=== PATIENT | female | born 1970 | race African-American/Black ===

== ENCOUNTER 2017-11-21 17:21 | Inpatient (IN) | payer BC ==
[~2017-11-21] VITALS: Ht 165.1 cm; Wt 78.2 kg
[~2017-11-21 17:21] MED LIST: AMITIZA24 MC1 PO; COL100 PO; COM5 PO; METP PO; THERAGRAN-M1 TA4 PO
[2017-11-21 17:31] VITALS: Ht 165.1 cm; Wt 78.2 kg
[2017-11-21 18:28] LABS: BASOPHIL % 0.2 % (0-2); PLATELET COUNT 350 x10^3mcL (130-400)
[2017-11-21 18:32] LABS: CHLORIDE SERUM 100 mmol/L (98-107); CREATININE SERUM 0.8 mg/dL (0.6-1.0); GFR1 > 60 mL/min; GLUCOSE SERUM 99 mg/dL (74-106); POTASSIUM SERUM 3.4 mmol/L (3.5-5.1); SODIUM SERUM 134 mmol/L (136-145)
[2017-11-21 18:33] LABS: RED CELL DISTRIBUTION WIDTH 15.6 % (11.5-14.5)
[2017-11-21 18:36] LABS: ALBUMIN 3.7 g/dL (3.4-5.0); ALKALINE PHOSPHATASE 50 U/L (46-116); ALT/SGPT 18 U/L (14-59); AST/SGOT 14 U/L (15-37); BILIRUBIN TOTAL 0.4 mg/dL (0.20-1.00); LIPASE 116 IU/L (73-393); TOTAL PROTEIN, SERUM 7.9 g/dL (6.4-8.2)
[2017-11-21 20:56] LABS: microscopic required? NO
[2017-11-21 21:10] LABS: UA SPECIFIC GRAVITY <=1.005 (1.005-1.035); urine erythrocyte NEGATIVE (NEGATIVE)
[2017-11-21 21:14] VITALS: BP 108/63
[2017-11-21 21:15] LABS: PHOSPHOROUS 3.5 mg/dL (2.5-4.9); T3 TOTAL 0.94 ng/mL
[2017-11-21 21:19] LABS: AMPHETAMINE QUAL UR POSITIVE (See below)
[2017-11-21 21:32] LABS: CHOLESTEROL/HDL RATIO 4.8
[2017-11-21 21:37] LABS: FREE T4 1.01 ng/dL (0.76-1.46); FREE THYROXINE INDEX 2.8 ug/dL (1.4-4.5); T4(THYROXINE) 8.4 ug/dL (4.7-13.3)
[2017-11-22 05:36] VITALS: BP 98/58
[2017-11-22 09:35] VITALS: BP 112/67
[2017-11-22 10:10] LABS: BASOPHIL % 0.8 % (0-2); PLATELET COUNT 330 x10^3mcL (130-400)
[2017-11-22 10:18] LABS: CALCIUM 8.4 mg/dL (8.5-10.1); CARBON DIOXIDE 23.7 mmol/L (21-32); CHLORIDE SERUM 110 mmol/L (98-107); CREATININE SERUM 0.8 mg/dL (0.6-1.0); GFR1 > 60 mL/min; GLUCOSE SERUM 86 mg/dL (74-106); SODIUM SERUM 143 mmol/L (136-145)
[2017-11-22 10:55] LABS: RED CELL DISTRIBUTION WIDTH 15.6 % (11.5-14.5)
[2017-11-22] MEDS ORDERED: LEVAQUIN750 MG PO (11:53)
[2017-11-22] MEDS ORDERED: FLA500 PO (11:54)
[2017-11-22 12:14] VITALS: BP 112/67
[2017-11-22 12:15] VITALS: BP 112/67
== END 2017-11-22 12:40 | disposition home or self-care (01) | DRG 392 ==
LOC: ED 17:21 → MU 19:59
PROVIDERS: Emergency Medicine; Family Medicine
DX: K52.9 Noninfective gastroenteritis and colitis, unspecified (principal); E87.6 Hypokalemia; E78.5 Hyperlipidemia, unspecified; F17.210 Nicotine dependence, cigarettes, uncomplicated; Z68.27 Body mass index [BMI] 27.0-27.9, adult; Z90.49 Acquired absence of other specified parts of digestive tract; Z90.710 Acquired absence of both cervix and uterus; Z72.89 Other problems related to lifestyle; Z80.1 Family history of malignant neoplasm of trachea, bronchus and lung
CPT/HCPCS: 83880; 84439; J1956; J2270; J2405; J2543; J3010; J3490; J7030; Q0092; Q0162

== ENCOUNTER 2018-11-03 14:05 | Emergency (ER) | payer SELFPAY ==
[~2018-11-03] VITALS: Ht 165.1 cm; Wt 70.3 kg
[~2018-11-03 14:05] MED LIST changes: +FLA500 PO; +LEVAQUIN750 MG PO
[2018-11-03 14:07] VITALS: Ht 165.1 cm; Wt 70.3 kg
[2018-11-03 15:36] LABS: BASOPHIL % 0.4 % (0-2); PLATELET COUNT 386 x10^3mcL (130-400); RED CELL DISTRIBUTION WIDTH 15.3 % (11.5-14.5)
[2018-11-03 15:47] LABS: CALCIUM 10.5 mg/dL (8.5-10.1); CARBON DIOXIDE 23.7 mmol/L (21-32); CHLORIDE SERUM 105 mmol/L (98-107); CREATININE SERUM 0.8 mg/dL (0.6-1.0); GFR1 > 60 mL/min; GLUCOSE SERUM 117 mg/dL (74-106); POTASSIUM SERUM 3.9 mmol/L (3.5-5.1); SODIUM SERUM 143 mmol/L (136-145)
[2018-11-03 15:52] LABS: ALBUMIN 3.7 g/dL (3.4-5.0); ALKALINE PHOSPHATASE 36 U/L (46-116); ALT/SGPT 29 U/L (14-59); AST/SGOT 13 U/L (15-37); BILIRUBIN DIRECT 0.16 mg/dL (0.0-0.2); BILIRUBIN TOTAL 0.6 mg/dL (0.20-1.00); LIPASE 197 IU/L (73-393)
[2018-11-03 15:54] LABS: TOTAL PROTEIN, SERUM 8.4 g/dL (6.4-8.2)
[2018-11-03 19:20] LABS: UA SPECIFIC GRAVITY 1.025 (1.005-1.035); microscopic required? YES; urine erythrocyte TRACE (NEGATIVE)
[2018-11-03 20:07] VITALS: BP 127/58
== END 2018-11-03 20:07 | disposition home or self-care (01) ==
LOC: ED 14:05
PROVIDERS: Student in an Organized Health Care Education/Training Program
DX: N12 Tubulo-interstitial nephritis, not specified as acute or chronic (principal); D72.829 Elevated white blood cell count, unspecified; R11.2 Nausea with vomiting, unspecified; G43.909 Migraine, unspecified, not intractable, without status migrainosus; Z88.1 Allergy status to other antibiotic agents; Z90.712 Acquired absence of cervix with remaining uterus
CPT/HCPCS: J0696; J1885; J2270; J2405; J3490; J7030; J7060; Q0092; Q9967

== ENCOUNTER 2018-11-14 14:59 | Inpatient (IN) | payer SELFPAY ==
[~2018-11-14] VITALS: Ht 165.1 cm; Wt 69.9 kg
--- NOTE | 2018-11-14 15:31 | NUR ---
PT BIBA C/O NAUSEA AND APPROX 6 EPISODES OF VOMITING SINCE 11AM. PT STS SHE WAS RECENTLY DX WITH "A KIDNEY INFECTION", STS SHE WAS "TOLD TO COME BACK IF I FELT WORSE AND STARTED HAVING FEVER, AND VOMITING", PT STS SHE HAS BEEN TAKING "CIPRO" FOR INFECTION AND "SOMETHING FOR THE NAUSEA BUT IT ISN'T HELPING". MODERATE TENDERNESS NOTED UPON PALP TO REJI LOWER QUADRANTS. PT NOTED TO BE TACHYPNIC, PLACED ON FULL CM, VSS, CALL LIGHT WITHIN REACH, REJI RAILS RAISED FOR SAFETY. [employer] OF 15, PT STS UPON D/C "MY DAUGHTER WILL PICK ME UP". UPON ASKING PT TO PROVIDE CLEAN CATCH URINE SAMPLE, PT STS, "IF THE DR IS GOING TO PUT IN AN IV, CAN YOU ASK HIM TO PUT IT IN WITH THE ULTRASOUND, BECAUSE I'M I HARD STICK, AND LAST TIME I WAS HERE THEY HAD A HARD TIME WITH GETTING AN IV". PT INFORMED A DR WILL BE MADE AWARE.
--- NOTE | 2018-11-14 16:28 | NUR ---
PT INSTRUCTED I WILL BE INITIATING AN IV AND DRAWING LABS FROM IV, PRIOR TO ATTEMPTED FOR AN IV PT STS "I JUST WANT TO KNOW IF I'M GOING TO GET ANYTHING FOR THE PAIN", PT INFORMED "NOT AT THIS MOMENT BECAUSE I'M GOING TO GET AN IV AND YOUR LABS DRAWN, AND THEN I WILL MEDICATE YOU", PT BEGAN TO CRY, BEGAN TO YELL "HE SAID HE WAS GOING TO ORDER SOMETHING FOR THE PAIN", PT INFORMED DR ACOSTA HAS ORDERED MEDICATION FOR HER, I STATED "BARE WITH ME, LET ME DRAW YOUR LABS AND GET AN IV AND SOON I'M DONE, I'LL BE IN HERE WITH THE MEDICATION", PT BEGAN TO YELL, "I NEED YOU TO BARE WITH ME!" DR ACOSTA MADE AWARE, SABINA CHEW, RN AT BEDSIDE TO ATTEMPT FOR IV ACCESS.
--- NOTE | 2018-11-14 16:30 | NUR ---
iv access established pt medicated per md orders see emar. ivf infusing with no problem
--- NOTE | 2018-11-14 16:31 | NUR ---
lab blood draw completed
--- NOTE | 2018-11-14 16:40 | NUR ---
pt c/o pain to lac iv site. area noted to be infiltrated iv dc'd ivf stopped.
--- NOTE | 2018-11-14 16:44 | NUR ---
new iv access established to l hand. 22g saline lock patent flushing with no problem. ivf infusion resumed. primary rn kinjal aware, resuming care of pt
[2018-11-14 16:57] LABS: BASOPHIL % 0.4 % (0-2); PLATELET COUNT 336 x10^3mcL (130-400); RED CELL DISTRIBUTION WIDTH 15.4 % (11.5-14.5)
[2018-11-14 17:06] LABS: CALCIUM 9.5 mg/dL (8.5-10.1); CARBON DIOXIDE 29.6 mmol/L (21-32); CHLORIDE SERUM 97 mmol/L (98-107); CREATININE SERUM 0.9 mg/dL (0.6-1.0); GFR1 > 60 mL/min; GLUCOSE SERUM 97 mg/dL (74-106); POTASSIUM SERUM 3.4 mmol/L (3.5-5.1); SODIUM SERUM 138 mmol/L (136-145)
[2018-11-14 17:11] LABS: ALBUMIN 4.1 g/dL (3.4-5.0); ALKALINE PHOSPHATASE 38 U/L (46-116); ALT/SGPT 37 U/L (14-59); AST/SGOT 22 U/L (15-37); BILIRUBIN TOTAL 0.7 mg/dL (0.20-1.00); TOTAL PROTEIN, SERUM 8.5 g/dL (6.4-8.2)
--- NOTE | 2018-11-14 17:23 | NUR ---
PT NOTED TO BE VOMITING INTO EMESIS BAG, APPROX 200CC OF YELLOW BILE-LIKE LIQUID NOTED.
--- NOTE | 2018-11-14 17:43 | NUR ---
PT MEDICATED PER EMAR AND MD ORDER, PT DENIES PAIN AT THIS TIME, RESPS E/U, VSS, PT IN NAD, CALL LIGHT WITHIN REACH, WILL CONTINUE TO MONITOR
--- NOTE | 2018-11-14 18:43 | NUR ---
PT NOTED TO BE SLEEING ON ED GURNEY, EQUAL CHEST RISE AND FALL NOTED, ON FULL CM. CALL LIGHT WITHIN REACH.
--- NOTE | 2018-11-14 19:15 | NUR ---
REPORT GIVEN TO GINA ROTH TO ASSUME CARE OF PT.
--- NOTE | 2018-11-14 19:34 | NUR ---
RECEIVED REPORT FROM BERNARD FUENTES AND ASSUMED CARE OF PATIENT. PT. LAYING ON GURNEY IN POSITION OF COMFORT. BREATHING E/U. REPORTS NAUSEA AT THIS TIME. DR. ACOSTA MADE AWARE.
--- NOTE | 2018-11-14 20:30 | NUR ---
PT. NOTED TO HAVE APROX 200ML OF YELLOW EMESIS. MEDICATED WITH REGLAN PER PROVIDERS ORDERS. TOLERATED WELL. FAMILY AT BEDSIDE. WILL CONTINUE TO MONITOR.
--- NOTE | 2018-11-14 20:58 | NUR ---
PT. REPORTS NAUSEA HAS SUBSIDED AFTER REGLAN INJECTION. PT. LAYING ON GURNEY IN POSITION OF COMFORT, LAUGHING AND TALKING WITH FAMILY MEMBERS, WILL CONTINUE TO MONITOR
--- NOTE | 2018-11-14 21:10 | NUR ---
PT. PUSHED CALL LIGHT AND STATES "IM READY TO BE DISCHARGED". WHEN ASKED IF SHE IS READY TO GO HOME, PT. STATES "ITS JUST TAKING TO LONG FOR ME TO GET A ROOM". INFORMED PT. SHE HAS A ROOM ASSIGNED. PT. STATES "OK THEN I WILL STAY." FAMILY AT BEDSIDE AND AGREES WITH PATIENT PLAN TO BE ADMITTED. PT. ALSO STATES SHE DECLINED LABS AT THIS TIME AND REQUEST TO HAVE THEM DRAWN WHEN SHE GETS UPSTAIRS.
--- NOTE | 2018-11-14 21:26 | NUR ---
REPORT GIVEN TO ANTON FUENTES IN [facility] FOR FURTHER CARE OF PATIENT.
--- NOTE | 2018-11-14 21:40 | NUR ---
PT. TRANSFERED TO [facility] VIA WHEELCHAIR BY ROLANDO DIAS. PT. AAOX4, TALKING AND RESPONDING APPROPRIATELY, BREATHING E/U. NAD. PT. STABLE AT TIME OF TRANSFER
--- NOTE | 2018-11-14 21:43 | NUR ---
RECEIVED PT FROM ED VIA [employer], CAME IN DUE TO VOMITING X1 DAY. AAOX4. DENIES HEADACHE/DIZZINESS. NO SOB NOTED, LUNG SOUNDS CTA. DENIES CHEST PAIN/PRESSURE. DENIES NAUSEA/VOMITING AT THIS TIME. STATED THAT SHE HAS 8/10 ABDOMINAL PAIN. LAST BM TODAY, FORMED. BOWEL SOUNDS HYPAOCTIVE. ABDOMEN IS SOFT. VOIDS. IV SITE PATENT AND INTACT. SIDE RAILS UPX2. PT'S DAUGHTER AT BEDSIDE. ENDORSED TO PRIMARY NURSE ANTON FOR CONTINUITY OF CARE
[2018-11-14 21:49] VITALS: BP 124/86
[2018-11-14 21:54] VITALS: Ht 165.1 cm; Wt 69.9 kg
--- NOTE | 2018-11-14 22:18 | NUR ---
RECEIVED PT FROM GINA BRYANT PT'S IN BED AAOX4 C/O SEVERE PAIN TO RIGHT LOWER QUADRANT RADIATING TO BILAT LOWER BACK 01/04 PT PREFER DILAUDID FOR PAIN WILL NOTIFY MD , PT DENY NAUSEA AT THE MOMENT , ABD SOFT TENDER TO TOUCH , PT DENY LOOSE STOOL/CONSIPATIONS , HL INTACT FLUSHING WELL , CALL LIGHT WITHIN PT'S REACH . WILL CON'T TO MONITOR AND ASSIST PT WITH CARE.
--- NOTE | 2018-11-15 00:15 | NUR ---
C/O ABD PAIN , GINA EUGENE MEDICATED PT WITH TORADOL 30MG IV +REGLAN IVP.
--- NOTE | 2018-11-15 03:31 | NUR ---
I HAVE REVIEWED THE DATA COLLECTION BY [employer] OPERATOR (NAME):ANTON ALMEIDA ENTERED ON (DATE/TIME): I CONCUR WITH THE DATA AND ANY EXCEPTIONS OR COMMENTS ARE LISTED BELOW:
[2018-11-15 04:25] VITALS: BP 105/79
--- NOTE | 2018-11-15 06:26 | NUR ---
NO CHANGES OF CONDITION NOTED , ALL DEU MEDS GIVEN NO REACTION NOTED, URINE COLLECTED SENT TO THE LAB ORDERED . PIV INTACT INFUSING WELL .
--- NOTE | 2018-11-15 07:27 | NUR ---
ASSUMED CARE OF PATIENT. SEEN SLEEPING WITH EQUAL AND UNLABORED RESPIRATIONS. NO APPARENT DISTRESS NOTED. IV TO LEFT HAND PATENT AND INUFSING NS AT 100ML/HR. WILL CONTINUE TO MONITOR.
[2018-11-15 08:04] LABS: UA SPECIFIC GRAVITY 1.015 (1.005-1.035); microscopic required? YES; urine erythrocyte NEGATIVE (NEGATIVE)
[2018-11-15 08:19] LABS: AMPHETAMINE QUAL UR NONE DETECTED (See below)
[2018-11-15 08:31] VITALS: BP 109/69
--- NOTE | 2018-11-15 08:45 | NUR ---
PATIENT REQUESTING TO GO HOME TODAY. DISCUSSED PLAN OF CARE HOWEVER PATIENT STATES SHE WOULD LIKE TO AMA. EDUCATED ON BENEFITS OF STAYING AND BEING SEEN BY PHYSICIAN BUT PATIENT REFUSES.
--- NOTE | 2018-11-15 08:50 | NUR ---
PATIENT REQUESTING AMA. NOTIFIED. AMA PAPERWORK SIGNED BY PATIENT.
--- NOTE | 2018-11-15 09:21 | NUR ---
PATIENT SEEN AT SITE DAMAGE PREVENTION TECHNICIAN WANTING TO LEAVE. PATIENTS CLOTHES MISSING FROM ER AND DRESSED IN HOSPITAL GOWN. ER AND SECURITY ASKED ABOUT CLOTHES, UNABLE TO FIND IT. OFFERRED CLOTHES FROM HOSPITAL BUT PATIENT WAS NOT WILLING TO WAIT A FEW MINUTES FOR THE CLOTHES. PATIENT SEEN ENTERING ELEVATOR, THIS RN FOLLOWED PATIENT DOWN TO LOBBY AND SAW PATIENT ENTERING THE CAR OF HER DAUGHTER.
== END 2018-11-15 09:19 | disposition left against medical advice (07) | DRG 389 ==
LOC: ED 14:59 → MU 20:17
PROVIDERS: Emergency Medicine; ADMIT General Practice
DX: K56.7 Ileus, unspecified (principal); N12 Tubulo-interstitial nephritis, not specified as acute or chronic; K52.9 Noninfective gastroenteritis and colitis, unspecified; E87.6 Hypokalemia; G43.909 Migraine, unspecified, not intractable, without status migrainosus; Z53.21 Procedure and treatment not carried out due to patient leaving prior to being seen by health care provider; F17.210 Nicotine dependence, cigarettes, uncomplicated; F12.10 Cannabis abuse, uncomplicated; Z68.27 Body mass index [BMI] 27.0-27.9, adult; Z88.1 Allergy status to other antibiotic agents; Z90.710 Acquired absence of both cervix and uterus; Z90.49 Acquired absence of other specified parts of digestive tract; Z80.9 Family history of malignant neoplasm, unspecified
CPT/HCPCS: G0378; J0696; J1885; J1956; J2405; J2765; J3010; J3490; J7030; Q0092